=== PATIENT | female | born 1980 | race Caucasian/White ===

== ENCOUNTER → 2017-10-04 | Outpatient (CLI) | payer OTHER ==
[~2017-10-04] MED LIST: CYCL10 PO; DIAZ5 PO; FLUO20 PO; HYDACE5 PO; NAPR500 PO; VENL25 PO
== END | disposition home or self-care (01) ==
LOC: LAB 17:35 → LAB SHORT 17:35
DX: N39.0 Urinary tract infection, site not specified (principal)
CPT/HCPCS: 87077; 87086; 87186

== ENCOUNTER → 2020-04-30 | Outpatient (CLI) | payer OTHER | END | disposition home or self-care (01) | LOC: LAB SHORT 11:00 → LAB 11:00 | DX: N30.00 Acute cystitis without hematuria (principal); R10.84 Generalized abdominal pain | CPT/HCPCS: 87086 ==

== ENCOUNTER 2020-09-11 06:14 | Day surgery (SDC) | payer OTHER ==
[~2020-09-11] VITALS: Ht 170.2 cm; Wt 111.3 kg
[2020-09-11] MEDS ORDERED: OLAN10 PO (06:43)
[2020-09-11] MEDS ORDERED: PROM25 PO (06:43)
[2020-09-11] MEDS ORDERED: OXYB5 PO (06:44)
[2020-09-11] MEDS ORDERED: OMEP20ER PO (06:44)
[2020-09-11] MEDS ORDERED: Percocet 5-3251 EACH PO (06:46)
[2020-09-11] MEDS ORDERED: FAMO20 PO (06:46)
[2020-09-11] MEDS ORDERED: ONDA4ODT MM (06:47)
[2020-09-11] MEDS ORDERED: LAMO100 PO (06:48)
[2020-09-11 07:20] LABS: BASOPHILS ABSOLUTE AUTO 0.02 K/mm3 (0.00-0.23); BASOPHILS PERCENT AUTO 0 % (0-2); EOSINOPHILS ABSOLUTE AUTO 0.02 K/mm3 (0.00-0.68); EOSINOPHILS PERCENT AUTO 0 % (0-6); Hemoglobin 15.2 g/dL (11.5-16.0); IMMATURE GRAN ABSOLUTE AUTO 0.01 K/mm3 (0.00-0.10); IMMATURE GRAN PERCENT AUTO 0 % (0-1); LYMPHOCYTES ABSOLUTE AUTO 2.24 K/mm3 (0.84-5.20); LYMPHOCYTES PERCENT AUTO 31 % (21-46); MONOCYTES ABSOLUTE AUTO 0.68 K/mm3 (0.16-1.47); MONOCYTES PERCENT AUTO 10 % (4-13); Mean Corpuscular HGB Conc 35.3 g/dL (31.5-36.5); Mean Corpuscular Volume 94 fL (80-100); NEUTROPHILS PERCENT AUTO 59 % (41-73); Platelet Count 249 K/mm3 (150-400); RDW Coefficient Variation 12.3 % (11.7-14.2); RDW Standard Deviation 42.5 fL (35.1-46.3); White Blood Cell Count 7.17 K/mm3 (4.00-11.30)
--- NOTE | 2020-09-11 07:33 | NUR ---
History, Chart, Medications and Allergies reviewed before start of procedure.Patient confirms NPO status and agrees with scheduled surgery. Patient reports completing Chlorhexadine shower X2 prior to admission to hospital.Surgical site prepped with 2% Chlorhexidine cloth wipe.
--- NOTE | 2020-09-11 15:45 | NUR ---
WONDERLY IN TO SEE PT. PLAN FOR PT TO STAY OVER NIGHT.
--- NOTE | 2020-09-12 04:53 | NUR ---
SHIFT SUMMARY NO ACUTE CHANGES THIS SHIFT. PAIN MANAGED WITH ORAL PAIN MEDICATIONS + TORADOL PER ORDERS. PT INDEP IN ROOM. VOIDING SPONTANEOUSLY. DION REG DIET. PASSING FLATUS. INCISION SITES REMAIN CDI WITH ABD BINDER IN PLACE. PLAN TO DISCHARGE HOME TODAY.
[2020-09-12 06:03] LABS: BASOPHILS ABSOLUTE AUTO 0.01 K/mm3 (0.00-0.23); BASOPHILS PERCENT AUTO 0 % (0-2); EOSINOPHILS PERCENT AUTO 0 % (0-6); Hematocrit 33.1 % (33.0-51.0); Hemoglobin 11.5 g/dL (11.5-16.0); IMMATURE GRAN ABSOLUTE AUTO 0.03 K/mm3 (0.00-0.10); IMMATURE GRAN PERCENT AUTO 0 % (0-1); LYMPHOCYTES ABSOLUTE AUTO 2.35 K/mm3 (0.84-5.20); LYMPHOCYTES PERCENT AUTO 20 % (21-46); MONOCYTES ABSOLUTE AUTO 1.28 K/mm3 (0.16-1.47); MONOCYTES PERCENT AUTO 11 % (4-13); Mean Corpuscular HGB 32.9 pg (26.0-34.0); Mean Corpuscular HGB Conc 34.7 g/dL (31.5-36.5); Mean Corpuscular Volume 95 fL (80-100); NEUTROPHILS PERCENT AUTO 69 % (41-73); Platelet Count 226 K/mm3 (150-400); RDW Coefficient Variation 12.4 % (11.7-14.2); White Blood Cell Count 11.67 K/mm3 (4.00-11.30)
[2020-09-12] MEDS ORDERED: OXYACE7.5T PO (13:25)
[2020-09-12] MEDS ORDERED: IBUP800 PO (13:26)
[2020-09-12] MEDS ORDERED: PROM25 PO (13:26)
--- NOTE | 2020-09-12 13:27 | NUR ---
DISCHARGE INSTRUCTIONS, WRITTEN AND VERBAL, GIVEN TO PT AND , AKIRA. ANSWERED ALL QUESTIONS AND CONCERNS. IV DISCONTINUED. DR. MCLEODLY VERBALLY NOTIFIED IN HALLWAY OF HYPOTENSION AND LAB LEVELS THIS MORNING. WRITTEN PRESCRIPTION HANDED TO PATIENT. ALL PERSONAL BELONGINGS RETURNED. PT IS DISCHARGED HOME, DRIVE HOME BY AKIRA.
== END 2020-09-12 13:51 | disposition home or self-care (01) ==
LOC: ORSCMMR 06:14 → BC 13:10 → ORSCMMR 09-12 13:51 → ORD 09-19 07:30 → ORSCMMR 09-19 07:30
PROVIDERS: Obstetrics & Gynecology
DX: D27.1 Benign neoplasm of left ovary (principal); D27.0 Benign neoplasm of right ovary; N73.6 Female pelvic peritoneal adhesions (postinfective); Z88.5 Allergy status to narcotic agent; Z87.891 Personal history of nicotine dependence; Z20.822 Contact with and (suspected) exposure to COVID-19
CPT/HCPCS: 36415; 85025; 88104; 88305; A9270; J0690; J1100; J1885; J2250; J2370; J2405; J2704; J2765; J3010; J7120

== ENCOUNTER → 2020-12-16 | Outpatient (CLI) | payer OTHER ==
[~2020-12-16] MED LIST changes: +FAMO20 PO; +IBUP800 PO; +LAMO100 PO; +OLAN10 PO; +OMEP20ER PO; +ONDA4ODT MM; +OXYACE7.5T PO; +OXYB5 PO; +PROM25 PO; +Percocet 5-3251 EACH PO
== END | disposition home or self-care (01) ==
LOC: LAB SHORT 15:00 → LAB 15:00
DX: N39.0 Urinary tract infection, site not specified (principal)
CPT/HCPCS: 87086

== ENCOUNTER → 2021-01-07 | Outpatient (CLI) | payer OTHER | END | disposition home or self-care (01) | LOC: LAB SHORT 19:19 → LAB 19:19 | DX: N39.0 Urinary tract infection, site not specified (principal); Z88.5 Allergy status to narcotic agent | CPT/HCPCS: 87077; 87086; 87186 ==

== ENCOUNTER → 2021-07-02 | Outpatient (CLI) | payer OTHER | LOC: LAB SHORT 14:29 → LAB 14:29 | DX: R30.9 Painful micturition, unspecified (principal) | CPT/HCPCS: 87086 ==

== ENCOUNTER → 2022-09-20 | Outpatient (CLI) | payer OTHER | END | disposition home or self-care (01) | LOC: LAB SHORT 14:30 → LAB 14:30 | DX: R30.0 Dysuria (principal) | CPT/HCPCS: 87086 ==

== ENCOUNTER → 2023-12-14 | Outpatient (CLI) | payer OTHER ==
[2023-12-14 18:13] LABS: BASOPHILS ABSOLUTE AUTO 0.03 K/mm3 (0.00-0.23); BASOPHILS PERCENT AUTO 0 % (0-2); EOSINOPHILS ABSOLUTE AUTO 0.28 K/mm3 (0.00-0.68); EOSINOPHILS PERCENT AUTO 3 % (0-6); Hematocrit 41.6 % (33.0-51.0); Hemoglobin 13.9 g/dL (11.5-16.0); IMMATURE GRAN ABSOLUTE AUTO 0.05 K/mm3 (0.00-0.10); IMMATURE GRAN PERCENT AUTO 1 % (0-1); LYMPHOCYTES ABSOLUTE AUTO 2.18 K/mm3 (0.84-5.20); LYMPHOCYTES PERCENT AUTO 20 % (21-46); MONOCYTES PERCENT AUTO 7 % (4-13); Mean Corpuscular HGB 32.3 pg (26.0-34.0); Mean Corpuscular HGB Conc 33.4 g/dL (31.5-36.5); Mean Corpuscular Volume 97 fL (80-100); Mean Platelet Volume 9.1 fL (9.1-12.4); NEUTROPHILS ABSOLUTE AUTO 7.45 K/mm3 (1.96-9.15); NEUTROPHILS PERCENT AUTO 70 % (41-73); Platelet Count 375 K/mm3 (150-400); RDW Coefficient Variation 12.7 % (11.7-14.2); RDW Standard Deviation 45.1 fL (35.1-46.3); Red Blood Cell Count 4.31 M/mm3 (3.80-5.20); White Blood Cell Count 10.69 K/mm3 (4.00-11.30)
[2023-12-14 19:32] LABS: Alanine Aminotransfer (ALT/SGP 13 U/L (12-78); Albumin, Blood 3.6 g/dL (3.4-5.0); Albumin/Globulin Ratio 0.8 (0.8-1.8); Alk Phos 130 U/L (50-136); Anion Gap 7 mmol/L (3-11); Aspartate Aminotrans (AST/SGOT 12 U/L (12-37); Bilirubin, Total 0.3 mg/dL (0.1-1.0); Blood Urea Nitrogen 18 mg/dL (8-24); Bun/Creatinine Ratio 22.6 (12.0-20.0); CHOL/HDL RATIO 3.5; CO2, Blood 25 mmol/L (21-32); Calcium, Blood 9.3 mg/dL (8.5-10.1); Chloride, Blood 110 mmol/L (98-108); Cholesterol 211 mg/dL (50-200); Globulin, Blood 4.5 g/dL (2.2-4.0); Glomerular Filtration Rate 93 (60-); Glucose, Blood 113 mg/dL (70-99); HDL Cholesterol 60 mg/dL (>39); LDL/HDL RATIO 2.2; Low Density Lipoprotein Chol 130 mg/dL (0-110); Potassium, Blood 4.1 mmol/L (3.5-5.5); Sodium, Blood 138 mmol/L (136-145); Total Protein, Blood 8.1 g/dL (6.4-8.2); Triglycerides 105 mg/dL (30-160); Very Low Density Lipoprot Chol 21 mg/dL (6-32)
[2023-12-14 19:37] LABS: Thyroid Stimulating Hormone 0.634 uIU/mL (0.360-4.800)
[2023-12-17 08:46] LABS: HIV 1,2 COMBO ANTIGEN/ANTIBODY Negative (Negative)
== END ==
LOC: LAB 15:51 → LAB SHORT 15:51
PROVIDERS: Family Medicine
DX: Z11.4 Encounter for screening for human immunodeficiency virus [HIV] (principal); Z79.899 Other long term (current) drug therapy
CPT/HCPCS: 80053; 80061; 82306; 83036; 84443; 85025; 87389

== ENCOUNTER → 2025-03-01 | Outpatient (CLI) | payer OTHER | LOC: LAB SHORT 10:10 → LAB 10:10 | DX: J02.0 Streptococcal pharyngitis (principal) | CPT/HCPCS: 87081 ==

== ENCOUNTER → 2025-03-06 | Outpatient (CLI) | payer OTHER ==
[2025-03-09 15:12] LABS: HIV 1,2 COMBO ANTIGEN/ANTIBODY Negative (Negative)
== END ==
LOC: LAB 17:28 → LAB SHORT 17:28
PROVIDERS: Family Medicine
DX: Z11.4 Encounter for screening for human immunodeficiency virus [HIV] (principal)
CPT/HCPCS: 87389